=== PATIENT | female | born 1945 | race Caucasian/White ===

== ENCOUNTER 2017-08-02 14:28 | Emergency (ER) | payer MEDICARE, MEDICAID ==
[~2017-08-02] VITALS: Ht 5032.2 cm; Wt 54.0 kg
[2017-08-02] MEDS ORDERED: BENZ-16 PO (16:56)
[2017-08-02] MEDS ORDERED: AZIT500T2 PO (16:56)
[2017-08-02 17:02] VITALS: BP 146/68
== END 2017-08-02 17:03 | disposition home or self-care (01) ==
LOC: ER 14:29
DX: J06.9 Acute upper respiratory infection, unspecified (principal); M54.5 Low back pain; I10 Essential (primary) hypertension; G43.909 Migraine, unspecified, not intractable, without status migrainosus; Z88.6 Allergy status to analgesic agent; Z88.4 Allergy status to anesthetic agent; Z88.1 Allergy status to other antibiotic agents; Z88.2 Allergy status to sulfonamides; Z88.8 Allergy status to other drugs, medicaments and biological substances
CPT/HCPCS: 99283

== ENCOUNTER 2017-12-25 14:17 | Emergency (ER) | payer MEDICARE, MEDICAID ==
[~2017-12-25] VITALS: Ht 152.4 cm; Wt 55.0 kg
[2017-12-25] MEDS ORDERED: ketorolac tromethamine 15mg/ml inj. IM ONE (17:30)
[2017-12-25] MEDS ORDERED: HYDR-569 PO (18:47)
[2017-12-25 18:58] VITALS: BP 160/64
== END 2017-12-25 19:00 | disposition home or self-care (01) ==
LOC: ER 14:18
DX: M54.6 Pain in thoracic spine (principal); M54.2 Cervicalgia; G89.29 Other chronic pain; G43.909 Migraine, unspecified, not intractable, without status migrainosus; I10 Essential (primary) hypertension; Z98.890 Other specified postprocedural states; Z88.5 Allergy status to narcotic agent; Z88.8 Allergy status to other drugs, medicaments and biological substances; Z79.899 Other long term (current) drug therapy; V87.7XXA Person injured in collision between other specified motor vehicles (traffic), initial encounter; Y93.89 Activity, other specified; Y92.89 Other specified places as the place of occurrence of the external cause; Y99.8 Other external cause status
CPT/HCPCS: 72125; 72128; 96372; 99284; J1885

== ENCOUNTER 2019-01-29 20:44 | Inpatient (IN) | payer MEDICARE, MEDICAID ==
[~2019-01-29] VITALS: Ht 154.9 cm; Wt 52.0 kg
[~2019-01-29 20:44] MED LIST: HYDR-4383 PO
[2019-01-29 21:18] LABS: BASOPHILS # (AUTO) 0.1 X10'3 (0-0.2); BASOPHILS % (AUTO) 0.8 % (0-1); EOSINOPHILS # (AUTO) 0.2 X10'3 (0-0.9); EOSINOPHILS % (AUTO) 1.8 % (0-6); HEMATOCRIT 39.1 % (35.0-45.0); HEMOGLOBIN 13.7 g/dl (12.0-16.0); LYMPHOCYTES # (AUTO) 2.6 X10'3 (1.1-4.8); MEAN CORPUSCULAR HEMOGLOBIN 28.8 PG (27.0-31.0); MEAN CORPUSCULAR VOLUME 82.4 FL (78-98); MONOCYTES # (AUTO) 1.2 X10'3 (0-0.9); MONOCYTES % (AUTO) 12.3 % (2-12); NEUTROPHILS # (AUTO) 5.4 X10'3 (1.8-7.7); NEUTROPHILS % (AUTO) 57.1 % (42-75); PLATELET COUNT 204 X10'3 (140-440); RED BLOOD COUNT 4.75 X10'6 (4.20-5.60); RED CELL DISTRIBUTION WIDTH 14.7 % (11.5-14.5); WHITE BLOOD COUNT 9.4 X10'3 (4.5-11.0)
[2019-01-29 21:40] LABS: ALANINE AMINOTRANSFERASE 38 U/L (12-78); ALBUMIN 3.9 G/DL (3.4-5.0); ALKALINE PHOSPHATASE 69 IU/L (46-116); ANION GAP 11 (8-16); ASPARTATE AMINO TRANSFERASE 26 U/L (10-37); BILIRUBIN,TOTAL 0.6 MG/DL (0.1-1.0); BLOOD UREA NITROGEN 28 MG/DL (7-18); BUN/CREATININE RATIO 16.3 (6.6-38.0); CALCIUM 10.3 MG/DL (8.5-10.1); CHLORIDE 99 MMOL/L (99-107); CREATININE 1.72 MG/DL (0.40-0.90); GLUCOSE 106 MG/DL (70-104); MAGNESIUM 1.6 MG/DL (1.5-2.4); SODIUM 139 MMOL/L (135-145); TOTAL CARBON DIOXIDE 29.5 MMOL/L (24-32); TOTAL PROTEIN 7.8 G/DL (6.4-8.2); eGFR 29 ML/MIN
[2019-01-29 21:44] LABS: POTASSIUM 2.4 MMOL/L (3.5-5.1)
[2019-01-29] MEDS ORDERED: potassium 10mEq/100ml NS w/LIDOcaine (10mg/bag) IV SCH (21:45)
[2019-01-29] MEDS ORDERED: potassium Cl 20 mEq SR tablet PO ONE (21:45)
[2019-01-29] MEDS ORDERED: potassium Cl 10 mEq/100mL bag IV SCH (21:47)
--- NOTE | 2019-01-29 23:01 | NUR ---
Pt c/o IV potassium stinging. Rate decreased from 100ml to 50ml.
--- NOTE | 2019-01-29 23:10 | NUR ---
Ratge decrease of potassium IV did not stop stinging. Med stopped temporarily. New IV to be placed.
[2019-01-29] MEDS ORDERED: magnesium Cl slow-release 64mg tablet PO PRN (23:40)
[2019-01-29] MEDS ORDERED: magnesium 2GM in 50ml NS 50 ML IV PRN (23:40)
[2019-01-29] MEDS ORDERED: potassium Cl 20 mEq SR tablet PO PRN ×2 (23:40)
[2019-01-29] MEDS ORDERED: magnesium 4gm in 100ml NS 100 ML IV PRN (23:40)
--- NOTE | 2019-01-30 00:47 | NUR ---
New IV placed; initial IV potassium restarted at 50ml rate. EDMD Patee has been appraised with each attempt to provide comfort w/ med administration.
[2019-01-30] MEDS: potassium CL 10mEq/100ml bag 100 ML IV PRN ×7 (02:21→10:23)
[2019-01-30] MEDS ORDERED: normal saline 1000ml 1,000 ML IV SCH (02:37)
--- NOTE | 2019-01-30 02:57 | NUR ---
Problems reprioritized. Patient report given, questions answered & plan of care reviewed with DIETER RN. Patient arrived safety and is alert and oriented.
[2019-01-30 03:00] VITALS: BP 145/66
--- NOTE | 2019-01-30 03:08 | NUR ---
Called Dr Godoy for patient in room 345's ECG stripe reading and MD stated she already saw the strip in ER. Strip is in pt chart.
[2019-01-30] MEDS: HYDROcodone/acetaminophen 5mg/325mg tablet PO PRN (03:56)
[2019-01-30] MEDS ORDERED: CITA20TA28 PO (04:16)
[2019-01-30] MEDS ORDERED: POTA10TA19 PO (04:16)
[2019-01-30] MEDS ORDERED: ACET500C5 PO (04:16)
[2019-01-30] MEDS ORDERED: PANT20TA3 PO (04:16)
[2019-01-30] MEDS ORDERED: SIMV20TA5 PO (04:16)
[2019-01-30] MEDS ORDERED: GUAI-652 PO (04:16)
[2019-01-30] MEDS ORDERED: ACET-1015 PO (04:16)
[2019-01-30] MEDS ORDERED: ACYC-202 PO (04:16)
[2019-01-30] MEDS ORDERED: BENZ-49 PO (04:16)
[2019-01-30] MEDS ORDERED: SYN0.088T PO (04:16)
--- NOTE | 2019-01-30 04:17 | NUR ---
PT HOME MEDS TO PHARMACY; DOCUMENTATION TO [id number]
[2019-01-30 05:40] LABS: ALBUMIN 3.6 G/DL (3.4-5.0); ANION GAP 14 (8-16); BLOOD UREA NITROGEN 24 MG/DL (7-18); BUN/CREATININE RATIO 16.3 (6.6-38.0); CALCIUM 10.6 MG/DL (8.5-10.1); CHLORIDE 101 MMOL/L (99-107); CREATININE 1.47 MG/DL (0.40-0.90); GLUCOSE 92 MG/DL (70-104); MAGNESIUM 1.6 MG/DL (1.5-2.4); POTASSIUM 3.3 MMOL/L (3.5-5.1); SODIUM 140 MMOL/L (135-145); TOTAL CARBON DIOXIDE 25.1 MMOL/L (24-32); eGFR 35 ML/MIN
[2019-01-30 05:49] LABS: BASOPHILS # (AUTO) 0.1 X10'3 (0-0.2); BASOPHILS % (AUTO) 0.8 % (0-1); EOSINOPHILS # (AUTO) 0.1 X10'3 (0-0.9); EOSINOPHILS % (AUTO) 1.5 % (0-6); HEMATOCRIT 37.7 % (35.0-45.0); HEMOGLOBIN 13.2 g/dl (12.0-16.0); LYMPHOCYTES # (AUTO) 2.5 X10'3 (1.1-4.8); LYMPHOCYTES % (AUTO) 28.9 % (21-51); MEAN CORPUSCULAR HEMOGLOBIN 28.8 PG (27.0-31.0); MEAN CORPUSCULAR HGB CONC 34.9 g/dL (33.0-36.5); MEAN CORPUSCULAR VOLUME 82.7 FL (78-98); MEAN PLATELET VOLUME 8.5 FL (7.4-10.4); MONOCYTES # (AUTO) 1.1 X10'3 (0-0.9); MONOCYTES % (AUTO) 12.2 % (2-12); NEUTROPHILS % (AUTO) 56.6 % (42-75); PLATELET COUNT 193 X10'3 (140-440); RED BLOOD COUNT 4.56 X10'6 (4.20-5.60); RED CELL DISTRIBUTION WIDTH 14.7 % (11.5-14.5); WHITE BLOOD COUNT 8.8 X10'3 (4.5-11.0)
--- NOTE | 2019-01-30 06:30 | NUR ---
Problems reprioritized. Patient report given, questions answered & plan of care reviewed with Lauren RN.patient is resting.
[2019-01-30 07:00] VITALS: BP 122/47
[2019-01-30] MEDS: K and/or MAG REPLACEMENT MC SCH (07:11)
[2019-01-30] MEDS: docusate sod 100mg capsule PO SCH ×2 (07:19→20:28)
[2019-01-30] MEDS ORDERED: POTA8CAP20 PO (08:57)
[2019-01-30 09:06] LABS: PHOSPHORUS 2.6 MG/DL (2.3-4.5)
[2019-01-30] MEDS: pantoprazole 40mg Tablet.DR PO SCH (09:51)
[2019-01-30] MEDS: levoTHYROXINE 88mcg tablet PO SCH (09:51)
[2019-01-30] MEDS: potassium chloride 8mEq ER tablet PO SCH (09:51)
[2019-01-30] MEDS: citalopram 20mg tablet PO SCH ×2 (09:51→20:27)
[2019-01-30 11:00] VITALS: BP 120/47
--- NOTE | 2019-01-30 11:40 | NUR ---
Malnutrition consult: Patient's current wt is stable with documented weights from previous visits with only wt change of -2 kg in greater than one year using scaled weights. Pt currently on heart healthy diet with documented 100% PO intake meeting nutrient needs. No edema or decrease in muscle strength. Pt currently does not meet criteria for malnutrition. Will continue to follow. Addendum: 01/30/19 at [address] Amended: Links added.
[2019-01-30] MEDS: acetaminophen 325mg tablet PO PRN (13:42)
[2019-01-30 13:44] VITALS: BP_SYST 115; BP_SYST 133; BP_SYST 92; BP_DIAS 52; BP_DIAS 59; BP_DIAS 62
[2019-01-30] MEDS ORDERED: Potassium Cl inj 20 MEQ in normal saline 1000ml 990 ML IV SCH (15:20)
--- NOTE | 2019-01-30 18:34 | NUR ---
Problems reprioritized. Patient report given, questions answered & plan of care reviewed with PRUDENCE RN.
--- NOTE | 2019-01-30 18:36 | NUR ---
Patient in room [facility]. I have received report from Lauren DECKER and had the opportunity to ask questions and assume patient care.
[2019-01-30 19:00] VITALS: BP 102/49
[2019-01-30 20:00] VITALS: BP_SYST 103; BP_SYST 111; BP_SYST 113; BP_DIAS 39
[2019-01-30] MEDS: magnesium Cl slow-release 64mg tablet PO SCH (20:27)
[2019-01-30] MEDS: atorvastatin 20mg tablet PO SCH (20:28)
[2019-01-30] MEDS: famotidine 20mg tablet PO SCH (20:29)
[2019-01-30] MEDS: potassium Cl 20mEq in NS 1,000 ML IV SCH (21:15)
[2019-01-31] VITALS: BP 140/48
[2019-01-31] MEDS: HYDROcodone/acetaminophen 5mg/325mg tablet PO PRN ×3 (00:37→23:37)
[2019-01-31] MEDS: potassium Cl 20mEq in NS 1,000 ML IV SCH ×2 (04:05→17:44)
[2019-01-31 04:40] LABS: BASOPHILS # (AUTO) 0.1 X10'3 (0-0.2); EOSINOPHILS # (AUTO) 0.2 X10'3 (0-0.9); MONOCYTES # (AUTO) 0.8 X10'3 (0-0.9); MONOCYTES % (AUTO) 11.2 % (2-12); WHITE BLOOD COUNT 7.6 X10'3 (4.5-11.0)
[2019-01-31 04:44] LABS: EOSINOPHILS % (AUTO) 3.3 % (0-6); HEMATOCRIT 35.1 % (35.0-45.0); HEMOGLOBIN 12.2 g/dl (12.0-16.0); LYMPHOCYTES # (AUTO) 2.9 X10'3 (1.1-4.8); MEAN CORPUSCULAR HEMOGLOBIN 28.9 PG (27.0-31.0); MEAN CORPUSCULAR HGB CONC 34.9 g/dL (33.0-36.5); MEAN PLATELET VOLUME 8.2 FL (7.4-10.4); NEUTROPHILS # (AUTO) 3.5 X10'3 (1.8-7.7); NEUTROPHILS % (AUTO) 46.5 % (42-75); PLATELET COUNT 176 X10'3 (140-440); RED BLOOD COUNT 4.23 X10'6 (4.20-5.60)
[2019-01-31 04:48] LABS: ALBUMIN 3.2 G/DL (3.4-5.0); ANION GAP 8 (8-16); BLOOD UREA NITROGEN 25 MG/DL (7-18); BUN/CREATININE RATIO 18.1 (6.6-38.0); CALCIUM 9.8 MG/DL (8.5-10.1); CHLORIDE 108 MMOL/L (99-107); CREATININE 1.38 MG/DL (0.40-0.90); GLUCOSE 115 MG/DL (70-104); MAGNESIUM 1.5 MG/DL (1.5-2.4); POTASSIUM 3.4 MMOL/L (3.5-5.1); SODIUM 142 MMOL/L (135-145); TOTAL CARBON DIOXIDE 25.6 MMOL/L (24-32); eGFR 37 ML/MIN
--- NOTE | 2019-01-31 05:20 | NUR ---
Notified Dr Godoy for pt in room 345B chest tightness. Vital signs take BP at 133/68, Heart rate 56 and patient denied having pain.
--- NOTE | 2019-01-31 06:29 | NUR ---
Problems reprioritized. Patient report given, questions answered & plan of care reviewed with Tamara DECKER. Patient stated she is feeling much and no chest tightness.
[2019-01-31 07:00] VITALS: BP 126/43
[2019-01-31 08:00] VITALS: BP_SYST 125; BP_SYST 126; BP_SYST 131; BP_DIAS 37; BP_DIAS 43
[2019-01-31] MEDS: K and/or MAG REPLACEMENT MC SCH (08:00)
[2019-01-31] MEDS: citalopram 20mg tablet PO SCH ×2 (09:40→20:34)
[2019-01-31] MEDS: docusate sod 100mg capsule PO SCH ×2 (09:40→20:00)
[2019-01-31] MEDS: magnesium Cl slow-release 64mg tablet PO SCH (09:40)
[2019-01-31] MEDS: pantoprazole 40mg Tablet.DR PO SCH (09:40)
[2019-01-31] MEDS: levoTHYROXINE 88mcg tablet PO SCH (09:40)
[2019-01-31] MEDS: potassium chloride 8mEq ER tablet PO SCH (09:40)
[2019-01-31] MEDS ORDERED: potassium Cl 20 mEq SR tablet PO STA (10:26)
[2019-01-31 11:00] VITALS: BP 129/40
[2019-01-31 11:25] LABS: PHOSPHORUS 2.8 MG/DL (2.3-4.5)
[2019-01-31] MEDS: magnesium oxide 400mg tablet PO SCH ×2 (12:01→20:34)
[2019-01-31 18:30] VITALS: BP 106/46
--- NOTE | 2019-01-31 18:30 | NUR ---
Patient in room [facility]. I have received report from CHIQUITA and had the opportunity to ask questions and assume patient care.
[2019-01-31] MEDS: atorvastatin 20mg tablet PO SCH (20:34)
[2019-01-31] MEDS: famotidine 20mg tablet PO SCH (20:34)
[2019-01-31 23:30] VITALS: BP 141/54
[2019-02-01] MEDS: potassium Cl 20mEq in NS 1,000 ML IV SCH ×3 (04:49→23:38)
[2019-02-01 05:04] LABS: BASOPHILS # (AUTO) 0.1 X10'3 (0-0.2); BASOPHILS % (AUTO) 0.9 % (0-1); EOSINOPHILS # (AUTO) 0.2 X10'3 (0-0.9); EOSINOPHILS % (AUTO) 3.5 % (0-6); HEMATOCRIT 32.8 % (35.0-45.0); HEMOGLOBIN 11.3 g/dl (12.0-16.0); LYMPHOCYTES # (AUTO) 2.6 X10'3 (1.1-4.8); LYMPHOCYTES % (AUTO) 39.1 % (21-51); MEAN CORPUSCULAR HEMOGLOBIN 28.9 PG (27.0-31.0); MEAN CORPUSCULAR HGB CONC 34.5 g/dL (33.0-36.5); MEAN PLATELET VOLUME 8.3 FL (7.4-10.4); MONOCYTES # (AUTO) 0.7 X10'3 (0-0.9); MONOCYTES % (AUTO) 10.1 % (2-12); NEUTROPHILS # (AUTO) 3.1 X10'3 (1.8-7.7); NEUTROPHILS % (AUTO) 46.4 % (42-75); PLATELET COUNT 165 X10'3 (140-440); RED BLOOD COUNT 3.91 X10'6 (4.20-5.60); WHITE BLOOD COUNT 6.6 X10'3 (4.5-11.0)
[2019-02-01 05:13] LABS: ALBUMIN 2.9 G/DL (3.4-5.0); ANION GAP 10 (8-16); BLOOD UREA NITROGEN 21 MG/DL (7-18); BUN/CREATININE RATIO 17.9 (6.6-38.0); CALCIUM 9.7 MG/DL (8.5-10.1); CHLORIDE 109 MMOL/L (99-107); CREATININE 1.17 MG/DL (0.40-0.90); GLUCOSE 115 MG/DL (70-104); MAGNESIUM 1.3 MG/DL (1.5-2.4); POTASSIUM 3.9 MMOL/L (3.5-5.1); SODIUM 143 MMOL/L (135-145); TOTAL CARBON DIOXIDE 24.3 MMOL/L (24-32); eGFR 45 ML/MIN
--- NOTE | 2019-02-01 06:26 | NUR ---
Problems reprioritized. Patient report given, questions answered & plan of care reviewed with CHIQUITA.
[2019-02-01 07:00] VITALS: BP 122/52
[2019-02-01] MEDS: K and/or MAG REPLACEMENT MC SCH (07:59)
[2019-02-01] MEDS: docusate sod 100mg capsule PO SCH ×2 (08:00→20:40)
[2019-02-01] MEDS: levoTHYROXINE 88mcg tablet PO SCH (08:00)
[2019-02-01] MEDS: pantoprazole 40mg Tablet.DR PO SCH (08:00)
[2019-02-01] MEDS: citalopram 20mg tablet PO SCH ×2 (08:00→20:40)
[2019-02-01] MEDS: magnesium oxide 400mg tablet PO SCH ×2 (08:00→20:40)
[2019-02-01] MEDS ORDERED: magnesium 2GM in 50ml NS 50 ML IV ONE (09:35)
[2019-02-01 11:00] VITALS: BP 141/66
[2019-02-01] MEDS: loratadine 10mg tablet PO SCH (17:38)
[2019-02-01 19:00] VITALS: BP 130/47
[2019-02-01] MEDS: atorvastatin 20mg tablet PO SCH (20:40)
[2019-02-01] MEDS: fluticasone nasal spray 16GM bottle NS SCH (20:40)
[2019-02-01] MEDS: famotidine 20mg tablet PO SCH (20:40)
[2019-02-01] MEDS: acetaminophen 325mg tablet PO PRN (23:48)
[2019-02-02] VITALS: BP 153/54
[2019-02-02 04:48] LABS: BASOPHILS # (AUTO) 0.1 X10'3 (0-0.2); BASOPHILS % (AUTO) 0.9 % (0-1); EOSINOPHILS # (AUTO) 0.3 X10'3 (0-0.9); EOSINOPHILS % (AUTO) 3.5 % (0-6); HEMATOCRIT 33.3 % (35.0-45.0); HEMOGLOBIN 11.4 g/dl (12.0-16.0); LYMPHOCYTES # (AUTO) 2.7 X10'3 (1.1-4.8); LYMPHOCYTES % (AUTO) 34.8 % (21-51); MEAN CORPUSCULAR HEMOGLOBIN 28.9 PG (27.0-31.0); MEAN CORPUSCULAR HGB CONC 34.3 g/dL (33.0-36.5); MEAN CORPUSCULAR VOLUME 84.2 FL (78-98); MEAN PLATELET VOLUME 8.4 FL (7.4-10.4); MONOCYTES # (AUTO) 0.7 X10'3 (0-0.9); MONOCYTES % (AUTO) 9.3 % (2-12); NEUTROPHILS % (AUTO) 51.5 % (42-75); PLATELET COUNT 172 X10'3 (140-440); RED BLOOD COUNT 3.95 X10'6 (4.20-5.60); RED CELL DISTRIBUTION WIDTH 15.3 % (11.5-14.5); WHITE BLOOD COUNT 7.7 X10'3 (4.5-11.0)
[2019-02-02 04:53] LABS: ALBUMIN 2.9 G/DL (3.4-5.0); ANION GAP 7 (8-16); BLOOD UREA NITROGEN 19 MG/DL (7-18); BUN/CREATININE RATIO 16.2 (6.6-38.0); CALCIUM 9.4 MG/DL (8.5-10.1); CHLORIDE 110 MMOL/L (99-107); CREATININE 1.17 MG/DL (0.40-0.90); GLUCOSE 104 MG/DL (70-104); MAGNESIUM 1.5 MG/DL (1.5-2.4); POTASSIUM 4.3 MMOL/L (3.5-5.1); SODIUM 141 MMOL/L (135-145); TOTAL CARBON DIOXIDE 23.8 MMOL/L (24-32); eGFR 45 ML/MIN
--- NOTE | 2019-02-02 06:47 | NUR ---
Problems reprioritized. Patient report given, questions answered & plan of care reviewed with THOMAS. Addendum: 02/02/19 at 0647 by Chava Cheng RN Amended: Links added.
[2019-02-02] MEDS: K and/or MAG REPLACEMENT MC SCH (07:39)
[2019-02-02 08:00] VITALS: BP 92/71
[2019-02-02] MEDS: citalopram 20mg tablet PO SCH ×2 (08:12→20:00)
[2019-02-02] MEDS: pantoprazole 40mg Tablet.DR PO SCH (08:12)
[2019-02-02] MEDS: loratadine 10mg tablet PO SCH (08:12)
[2019-02-02] MEDS: levoTHYROXINE 88mcg tablet PO SCH (08:12)
[2019-02-02] MEDS: guaiFENesin/DM 10ml UD oral syrup PO SCH (08:13)
[2019-02-02] MEDS: fluticasone nasal spray 16GM bottle NS SCH (08:13)
[2019-02-02] MEDS: docusate sod 100mg capsule PO SCH ×2 (08:13→20:00)
[2019-02-02] MEDS: magnesium oxide 400mg tablet PO SCH ×2 (08:13→20:00)
[2019-02-02] MEDS: potassium Cl 20mEq in NS 1,000 ML IV SCH ×2 (09:15→17:13)
[2019-02-02 12:00] VITALS: BP 152/59
[2019-02-02] MEDS: ondansetron/PF 4mg/2ml inj IV PRN (17:11)
--- NOTE | 2019-02-02 18:26 | NUR ---
Problems reprioritized. Patient report given, questions answered & plan of care reviewed with JERONIMO Tomas.
[2019-02-02 19:00] VITALS: BP 151/58
[2019-02-02] MEDS: atorvastatin 20mg tablet PO SCH (22:00)
[2019-02-02] MEDS: famotidine 20mg tablet PO SCH (22:00)
[2019-02-03] VITALS (12 sets, daily range): BP systolic 119–146; BP diastolic 37–57
[2019-02-03] MEDS: acetaminophen 325mg tablet PO PRN (00:49)
[2019-02-03 04:53] LABS: BASOPHILS # (AUTO) 0.1 X10'3 (0-0.2); BASOPHILS % (AUTO) 0.7 % (0-1); EOSINOPHILS # (AUTO) 0.2 X10'3 (0-0.9); EOSINOPHILS % (AUTO) 3.4 % (0-6); HEMATOCRIT 33.1 % (35.0-45.0); HEMOGLOBIN 11.2 g/dl (12.0-16.0); LYMPHOCYTES # (AUTO) 2.4 X10'3 (1.1-4.8); LYMPHOCYTES % (AUTO) 33.1 % (21-51); MEAN CORPUSCULAR HEMOGLOBIN 28.8 PG (27.0-31.0); MEAN CORPUSCULAR HGB CONC 33.8 g/dL (33.0-36.5); MEAN CORPUSCULAR VOLUME 85.1 FL (78-98); MEAN PLATELET VOLUME 8.3 FL (7.4-10.4); MONOCYTES # (AUTO) 0.7 X10'3 (0-0.9); MONOCYTES % (AUTO) 9.2 % (2-12); NEUTROPHILS # (AUTO) 3.9 X10'3 (1.8-7.7); NEUTROPHILS % (AUTO) 53.6 % (42-75); PLATELET COUNT 174 X10'3 (140-440); RED BLOOD COUNT 3.89 X10'6 (4.20-5.60); RED CELL DISTRIBUTION WIDTH 15.3 % (11.5-14.5); WHITE BLOOD COUNT 7.3 X10'3 (4.5-11.0)
[2019-02-03 05:10] LABS: ANION GAP 9 (8-16); BLOOD UREA NITROGEN 21 MG/DL (7-18); BUN/CREATININE RATIO 18.4 (6.6-38.0); CALCIUM 9.6 MG/DL (8.5-10.1); CHLORIDE 109 MMOL/L (99-107); CREATININE 1.14 MG/DL (0.40-0.90); GLUCOSE 99 MG/DL (70-104); MAGNESIUM 1.3 MG/DL (1.5-2.4); POTASSIUM 4.3 MMOL/L (3.5-5.1); SODIUM 143 MMOL/L (135-145); TOTAL CARBON DIOXIDE 25.2 MMOL/L (24-32); eGFR 46 ML/MIN
--- NOTE | 2019-02-03 06:42 | NUR ---
Patient in room [facility]. I have received report from Thom DECKER and had the opportunity to ask questions and assume patient care.
[2019-02-03] MEDS: potassium Cl 20mEq in NS 1,000 ML IV SCH (06:43)
--- NOTE | 2019-02-03 06:43 | NUR ---
Problems reprioritized. Patient report given, questions answered & plan of care reviewed with MIGUEL A. Addendum: 02/03/19 at 0643 by Chava Cheng RN Amended: Links added.
[2019-02-03] MEDS ORDERED: chlorhexidine gluc 0.4% **topical ** 120ml btl. TP ONE (07:20)
[2019-02-03] MEDS: K and/or MAG REPLACEMENT MC SCH (08:00)
[2019-02-03] MEDS: docusate sod 100mg capsule PO SCH ×2 (08:05→20:00)
[2019-02-03] MEDS: guaiFENesin/DM 10ml UD oral syrup PO SCH (08:05)
[2019-02-03] MEDS: magnesium oxide 400mg tablet PO SCH ×2 (08:06→20:18)
[2019-02-03] MEDS: pantoprazole 40mg Tablet.DR PO SCH (08:06)
[2019-02-03] MEDS: citalopram 20mg tablet PO SCH ×2 (08:06→20:17)
[2019-02-03] MEDS: levoTHYROXINE 88mcg tablet PO SCH (08:06)
[2019-02-03] MEDS: loratadine 10mg tablet PO SCH (08:06)
[2019-02-03] MEDS ORDERED: magnesium 2GM in 50ml NS 50 ML IV ONE (08:15)
[2019-02-03] MEDS ORDERED: ceFAZolin 1GM/D5W- ADD-VANTAGE 50 ML IV ONE ×2 (08:15)
[2019-02-03] MEDS: fluticasone nasal spray 16GM bottle NS SCH (08:19)
[2019-02-03 09:49] LABS: PARTIAL THROMBOPLASTIN TIME 26 SECONDS (22-32)
[2019-02-03] MEDS: HYDROcodone/acetaminophen 5mg/325mg tablet PO PRN ×2 (11:38→20:16)
--- NOTE | 2019-02-03 14:02 | NUR ---
Initial: Pt admit with c/o dizziness and with hypokalemia. Pt was to be discharged however noted to have intermittent second-degree heart block, cardiology consulted per MD notes. Pt currently NPO however previously on heart healthy diet with documented 100% PO intake meeting nutrient needs. LBM 01/31, pt with routine Colace. No nutrition diagnosis at this time. Will continue to follow. Recommendations: 1) Resume heart healthy diet as medically indicated 2) Routine bowel care; monitor need for additional 3) Wt per rx Addendum: 02/03/19 at [address] Amended: Links added.
[2019-02-03 14:22] LABS: CLARITY,URINE CLEAR (Clear); COLOR,URINE YELLOW (Yellow); GLUCOSE, URINE NEGATIVE (Neg); KETONES,URINE NEGATIVE (Neg); LEUKOCYTE ESTERASE ,URINE NEGATIVE (Neg); NITRITES, URINE NEGATIVE (Neg); OCCULT BLOOD,URINE MODERATE (Neg); PROTEIN,URINE NEGATIVE (Neg); UROBILINOGEN,URINE 0.2 E.U/dL (0.2-1.0)
[2019-02-03 14:26] LABS: PHOS, URINE RANDOM 16.1 MG/DL; TOTAL PROTEIN,URINE RANDOM 14.6 MG/DL
[2019-02-03 14:28] LABS: UA COLLECTION TYPE CLN CATCH MIDSTREAM
[2019-02-03 14:38] LABS: HYALINE CASTS 0-3 /LPF (NEGATIVE); MUCUS STRANDS FEW /LPF (Neg); SQUAMOUS EPITHELIAL CELL,UR MANY /LPF (FEW)
[2019-02-03 14:39] LABS: BACTERIA,URINE FEW /HPF (Neg); WBC,URINE 0-4 /HPF (0-4)
[2019-02-03] MEDS ORDERED: cefazolin/dext.iso 2gm/100ml 100 ML IV ONE (16:00)
[2019-02-03] MEDS ORDERED: fentaNYL/PF 50MCG/1 ML 2ML syringe ONE (16:33)
[2019-02-03] MEDS ORDERED: ceFAZolin 1000mg inj ONE (16:33)
[2019-02-03] MEDS ORDERED: midazolam 2 mg/2 ml injection ONE (16:33)
--- NOTE | 2019-02-03 17:02 | NUR ---
Patient just went to [employer] for permanent pacemaker insertion. Addendum: 02/03/19 at 1717 by Jahaira Salas RN Preop antibiotic Ancef IV given to the [employer] nurse during hands off report
[2019-02-03] MEDS ORDERED: normal saline 1000ml 1,000 ML IV SCH (19:00)
--- NOTE | 2019-02-03 19:30 | NUR ---
pt returned from pacemaker placement; pt reminded not to move her left arm (sling on); CSM adequate to arm Addendum: 02/04/19 at 0108 by Louisa Frances RN Amended: Links added.
[2019-02-03] MEDS: famotidine 20mg tablet PO SCH (20:18)
[2019-02-03] MEDS: atorvastatin 20mg tablet PO SCH (20:18)
[2019-02-03] MEDS ORDERED: HYDROcodone/acetaminophen 5mg/325mg tablet PO PRN (23:50)
[2019-02-04] MEDS: HYDROcodone/acetaminophen 10/325mg tab PO PRN ×5 (00:02→20:11)
[2019-02-04] MEDS: ceFAZolin 1GM/D5W- ADD-VANTAGE 50 ML IV SCH ×3 (00:08→16:39)
[2019-02-04] MEDS: sodium chloride 0.45% 1,000 ML IV SCH ×4 (00:16→22:45)
[2019-02-04 04:00] VITALS: BP 118/52
[2019-02-04 07:00] VITALS: BP 154/50
--- NOTE | 2019-02-04 07:00 | NUR ---
Patient in room [facility]. I have received report from Pat RN and had the opportunity to ask questions and assume patient care.
[2019-02-04] MEDS: K and/or MAG REPLACEMENT MC SCH (08:00)
[2019-02-04] MEDS: pantoprazole 40mg Tablet.DR PO SCH (08:12)
[2019-02-04] MEDS: loratadine 10mg tablet PO SCH (08:12)
[2019-02-04] MEDS: docusate sod 100mg capsule PO SCH ×2 (08:12→20:11)
[2019-02-04] MEDS: levoTHYROXINE 88mcg tablet PO SCH (08:12)
[2019-02-04] MEDS: citalopram 20mg tablet PO SCH ×2 (08:12→20:12)
[2019-02-04] MEDS: magnesium oxide 400mg tablet PO SCH ×2 (08:12→20:12)
[2019-02-04] MEDS: guaiFENesin/DM 10ml UD oral syrup PO SCH (08:13)
[2019-02-04] MEDS: fluticasone nasal spray 16GM bottle NS SCH (08:19)
[2019-02-04 10:06] LABS: HEMATOCRIT 32.6 % (35.0-45.0); MEAN CORPUSCULAR HEMOGLOBIN 28.6 PG (27.0-31.0); MEAN CORPUSCULAR HGB CONC 33.8 g/dL (33.0-36.5); MEAN CORPUSCULAR VOLUME 84.6 FL (78-98); MEAN PLATELET VOLUME 7.5 FL (7.4-10.4); PLATELET COUNT 173 X10'3 (140-440); RED BLOOD COUNT 3.86 X10'6 (4.20-5.60); RED CELL DISTRIBUTION WIDTH 14.9 % (11.5-14.5); WHITE BLOOD COUNT 7.7 X10'3 (4.5-11.0)
[2019-02-04 10:23] LABS: ALANINE AMINOTRANSFERASE 28 U/L (12-78); ALBUMIN/GLOBULIN RATIO 0.9 (1.1-1.5); ALKALINE PHOSPHATASE 53 IU/L (46-116); ANION GAP 10 (8-16); ASPARTATE AMINO TRANSFERASE 23 U/L (10-37); BILIRUBIN,TOTAL 0.4 MG/DL (0.1-1.0); BLOOD UREA NITROGEN 18 MG/DL (7-18); BUN/CREATININE RATIO 15.3 (6.6-38.0); CALCIUM 9.1 MG/DL (8.5-10.1); CHLORIDE 106 MMOL/L (99-107); CREATININE 1.18 MG/DL (0.40-0.90); GLUCOSE 126 MG/DL (70-104); MAGNESIUM 1.6 MG/DL (1.5-2.4); PHOSPHORUS 2.8 MG/DL (2.3-4.5); SODIUM 140 MMOL/L (135-145); TOTAL CARBON DIOXIDE 24.1 MMOL/L (24-32); TOTAL PROTEIN 6.3 G/DL (6.4-8.2); eGFR 45 ML/MIN
[2019-02-04 11:00] VITALS: BP 110/50
[2019-02-04] MEDS: ondansetron/PF 4mg/2ml inj IV PRN (18:18)
--- NOTE | 2019-02-04 18:52 | NUR ---
Problems reprioritized. Patient report given, questions answered & plan of care reviewed with Khadijah DECKER.
--- NOTE | 2019-02-04 18:53 | NUR ---
Patient in room [facility]. I have received report from MIGUEL A DECKER and had the opportunity to ask questions and assume patient care.
[2019-02-04 20:00] VITALS: BP 123/57
[2019-02-04] MEDS: lactobacillus rhamnosus 10,000 MMU CELLS/CAPSULE PO SCH (20:11)
[2019-02-04] MEDS: cephalexin 500mg capsule PO SCH (20:12)
[2019-02-04] MEDS: atorvastatin 20mg tablet PO SCH (20:12)
[2019-02-04] MEDS: famotidine 20mg tablet PO SCH (20:12)
[2019-02-05] VITALS: BP 111/48
[2019-02-05] MEDS: HYDROcodone/acetaminophen 10/325mg tab PO PRN ×3 (03:21→15:40)
[2019-02-05] MEDS: sodium chloride 0.45% 1,000 ML IV SCH (03:27)
[2019-02-05 05:23] LABS: HEMATOCRIT 33.2 % (35.0-45.0); HEMOGLOBIN 11.2 g/dl (12.0-16.0); MEAN CORPUSCULAR HEMOGLOBIN 28.8 PG (27.0-31.0); MEAN CORPUSCULAR HGB CONC 33.8 g/dL (33.0-36.5); MEAN CORPUSCULAR VOLUME 85.1 FL (78-98); MEAN PLATELET VOLUME 8.4 FL (7.4-10.4); PLATELET COUNT 178 X10'3 (140-440); RED BLOOD COUNT 3.91 X10'6 (4.20-5.60); WHITE BLOOD COUNT 8.2 X10'3 (4.5-11.0)
[2019-02-05 05:33] LABS: ALANINE AMINOTRANSFERASE 21 U/L (12-78); ALBUMIN 3.1 G/DL (3.4-5.0); ALBUMIN/GLOBULIN RATIO 0.9 (1.1-1.5); ALKALINE PHOSPHATASE 57 IU/L (46-116); ANION GAP 5 (8-16); ASPARTATE AMINO TRANSFERASE 26 U/L (10-37); BILIRUBIN,TOTAL 0.4 MG/DL (0.1-1.0); BLOOD UREA NITROGEN 17 MG/DL (7-18); BUN/CREATININE RATIO 14.5 (6.6-38.0); CALCIUM 9.8 MG/DL (8.5-10.1); CHLORIDE 108 MMOL/L (99-107); CREATININE 1.17 MG/DL (0.40-0.90); GLUCOSE 97 MG/DL (70-104); MAGNESIUM 1.8 MG/DL (1.5-2.4); PHOSPHORUS 3.2 MG/DL (2.3-4.5); POTASSIUM 4.2 MMOL/L (3.5-5.1); SODIUM 142 MMOL/L (135-145); TOTAL CARBON DIOXIDE 29.2 MMOL/L (24-32); TOTAL PROTEIN 6.5 G/DL (6.4-8.2); eGFR 45 ML/MIN
--- NOTE | 2019-02-05 06:14 | NUR ---
Problems reprioritized. Patient report given, questions answered & plan of care reviewed with ROSETTA DECKER.
--- NOTE | 2019-02-05 06:15 | NUR ---
Patient in room [facility]. I have received report from JERONIMO Lucio and had the opportunity to ask questions and assume patient care.
[2019-02-05 07:23] VITALS: BP 99/50
[2019-02-05] MEDS: fluticasone nasal spray 16GM bottle NS SCH (07:40)
[2019-02-05] MEDS: citalopram 20mg tablet PO SCH (07:41)
[2019-02-05] MEDS: lactobacillus rhamnosus 10,000 MMU CELLS/CAPSULE PO SCH (07:41)
[2019-02-05] MEDS: cephalexin 500mg capsule PO SCH (07:41)
[2019-02-05] MEDS: loratadine 10mg tablet PO SCH (07:41)
[2019-02-05] MEDS: docusate sod 100mg capsule PO SCH (07:41)
[2019-02-05] MEDS: pantoprazole 40mg Tablet.DR PO SCH (07:42)
[2019-02-05] MEDS: levoTHYROXINE 88mcg tablet PO SCH (07:42)
[2019-02-05] MEDS: magnesium oxide 400mg tablet PO SCH (07:42)
[2019-02-05] MEDS: guaiFENesin/DM 10ml UD oral syrup PO SCH (07:42)
[2019-02-05 11:17] LABS: A/G RATIO 1.1 (0.7-1.7); ALBUMIN 3.5 g/dL (2.9-4.4); BETA GLOBULIN 1.1 g/dL (0.7-1.3); GAMMA GLOBULIN 0.9 g/dL (0.4-1.8); GLOBULIN, TOTAL 3.2 g/dL (2.2-3.9); M-SPIKE Not Observed g/dL (Not Observed); PROTEIN, TOTAL, SERUM 6.7 g/dL (6.0-8.5)
[2019-02-05 11:39] VITALS: BP 132/62
[2019-02-05] MEDS ORDERED: CEPH500C5 PO (13:10)
--- NOTE | 2019-02-05 15:00 | NUR ---
Earlier this am there were two calls from Tele saying that her O2 had dropped into the mid 80's. Every time I checked the patient she was not short of breath. I also checked her with our machine and she was usually 90-92. She would occasionally drop to 88 and then right back up again. Patient ambulated on RA and never dropped below 90. The patient doesn't quality for home O2. Spoke to Dr. Mari and he suggested to give her an IS to use here and at home. Dr. Mari was also concerned if she would benefit from HH. I spoke to the patient and she has an [employer] worker that comes in 5 days a week; so she has someone looking after her and her son. Her son lives with her also but he has CP and isn't able to help her very much. Addendum: 02/05/19 at 1644 by Melissa Jacobs RN MD aware that the patient has an [employer] worker and doesn't need HH.
--- NOTE | 2019-02-05 16:10 | NUR ---
Patient discharged. PIV removed: cath tip intact. Education given and patient verbalized understanding. Patient was given pacemaker pamphlet from chart; as well as, the card she is supposed to put in her wallet. Patient was wheeled down by staff.
[2019-02-09 13:18] LABS: RENIN, PLASMA 0.382 ng/mL/hr (0.167-5.380)
[2019-02-10 05:17] LABS: ALDOSTERONE <1.0 ng/dL (0.0-30.0)
== END 2019-02-05 16:15 | disposition home or self-care (01) | DRG 242 ==
LOC: ER 20:44 → SUR 3N 01-30 01:34 → CMPBEDREQ 02-01 20:25
PROVIDERS: ADMIT Internal Medicine; ATTEND Family Medicine
PROC: 0JH606Z Insertion of Pacemaker, Dual Chamber into Chest Subcutaneous Tissue and Fascia, Open Approach (ICD-10-PCS; principal; 2019-02-03)
PROC: 02HK3JZ Insertion of Pacemaker Lead into Right Ventricle, Percutaneous Approach (ICD-10-PCS; 2019-02-03)
PROC: 02H63JZ Insertion of Pacemaker Lead into Right Atrium, Percutaneous Approach (ICD-10-PCS; 2019-02-03)
DX: I49.5 Sick sinus syndrome (principal); N17.0 Acute kidney failure with tubular necrosis; E87.6 Hypokalemia; E86.9 Volume depletion, unspecified; I44.1 Atrioventricular block, second degree; E03.9 Hypothyroidism, unspecified; G90.8 Other disorders of autonomic nervous system; I12.9 Hypertensive chronic kidney disease with stage 1 through stage 4 chronic kidney disease, or unspecified chronic kidney disease; N18.9 Chronic kidney disease, unspecified; E78.5 Hyperlipidemia, unspecified; I95.1 Orthostatic hypotension; E83.52 Hypercalcemia; E83.42 Hypomagnesemia; E86.0 Dehydration; I34.0 Nonrheumatic mitral (valve) insufficiency; E83.39 Other disorders of phosphorus metabolism; G43.909 Migraine, unspecified, not intractable, without status migrainosus; G89.29 Other chronic pain; M54.9 Dorsalgia, unspecified; Z90.710 Acquired absence of both cervix and uterus; Z88.5 Allergy status to narcotic agent; Z88.2 Allergy status to sulfonamides; Z88.8 Allergy status to other drugs, medicaments and biological substances; Z79.899 Other long term (current) drug therapy; Z98.51 Tubal ligation status; Z90.49 Acquired absence of other specified parts of digestive tract
CPT/HCPCS: 33208; 36415; 70450; 71045; 80048; 80053; 81001; 82088; 82570; 83735; 83880; 84100; 84105; 84132; 84133; 84155; 84156; 84165; 84244; 84443; 84484; 85025; 85027; 85610; 85730; 87081; 93005; 93306; 96365; 97116; 97162; 99152; 99153; 99285; A4565; A4620; C1785; C1898; G0378; J0690; J2250; J2405; J3010; J3475; J3480; J7030

== ENCOUNTER 2019-06-26 09:57 | Emergency (ER) | payer MEDICARE, MEDICAID ==
[~2019-06-26] VITALS: Ht 154.9 cm; Wt 52.7 kg
[~2019-06-26 09:57] MED LIST changes: +ACET-1015 PO; +ACET500C5 PO; +ACYC-202 PO; +BENZ-49 PO; +CEPH500C5 PO; +CITA20TA28 PO; +GUAI-652 PO; -HYDR-4383 PO; +PANT20TA3 PO; +POTA8CAP20 PO; +SIMV-42 PO; +SYN0.088T PO
[2019-06-26 10:55] LABS: EOSINOPHILS % (AUTO) 0.8 % (0-6); HEMATOCRIT 39.6 % (35.0-45.0); HEMOGLOBIN 13.5 g/dl (12.0-16.0); LYMPHOCYTES # (AUTO) 1.4 X10'3 (1.1-4.8); LYMPHOCYTES % (AUTO) 30.4 % (21-51); MEAN CORPUSCULAR HEMOGLOBIN 27.3 PG (27.0-31.0); MEAN CORPUSCULAR HGB CONC 34.1 g/dL (33.0-36.5); MEAN PLATELET VOLUME 8.4 FL (7.4-10.4); MONOCYTES # (AUTO) 0.5 X10'3 (0-0.9); MONOCYTES % (AUTO) 11.7 % (2-12); NEUTROPHILS # (AUTO) 2.5 X10'3 (1.8-7.7); NEUTROPHILS % (AUTO) 56.1 % (42-75); PLATELET COUNT 128 X10'3 (140-440); RED BLOOD COUNT 4.95 X10'6 (4.20-5.60); RED CELL DISTRIBUTION WIDTH 15.3 % (11.5-14.5); WHITE BLOOD COUNT 4.5 X10'3 (4.5-11.0)
[2019-06-26 11:08] LABS: ALANINE AMINOTRANSFERASE 43 U/L (12-78); ALBUMIN 4.3 G/DL (3.4-5.0); ALBUMIN/GLOBULIN RATIO 1.1 (1.1-1.5); ALKALINE PHOSPHATASE 76 IU/L (46-116); ANION GAP 9 (8-16); ASPARTATE AMINO TRANSFERASE 31 U/L (10-37); BILIRUBIN,TOTAL 0.6 MG/DL (0.1-1.0); BLOOD UREA NITROGEN 16 MG/DL (7-18); BUN/CREATININE RATIO 11.9 (6.6-38.0); CALCIUM 9.4 MG/DL (8.5-10.1); CHLORIDE 105 MMOL/L (99-107); CREATININE 1.34 MG/DL (0.40-0.90); GLUCOSE 114 MG/DL (70-104); POTASSIUM 3.1 MMOL/L (3.5-5.1); SODIUM 142 MMOL/L (135-145); TOTAL CARBON DIOXIDE 27.8 MMOL/L (24-32); TOTAL PROTEIN 8.1 G/DL (6.4-8.2); eGFR 39 ML/MIN
[2019-06-26 12:29] VITALS: BP 154/70
[2019-06-26] MEDS ORDERED: ipratropium/albuterol 3ml nebule NEB ONE (13:20)
--- NOTE | 2019-06-26 13:36 | NUR ---
RT in room for tx as ordered.
[2019-06-26] MEDS ORDERED: BENZ-16 PO (14:01)
== END 2019-06-26 14:21 | disposition home or self-care (01) ==
LOC: ER 09:59
DX: J06.9 Acute upper respiratory infection, unspecified (principal); G43.909 Migraine, unspecified, not intractable, without status migrainosus; I10 Essential (primary) hypertension; G89.29 Other chronic pain; Z98.890 Other specified postprocedural states; Z88.5 Allergy status to narcotic agent; Z88.1 Allergy status to other antibiotic agents; Z88.6 Allergy status to analgesic agent; Z79.899 Other long term (current) drug therapy
CPT/HCPCS: 36415; 71046; 80053; 83605; 84484; 85025; 87040; 93005; 94640; 94760; 99284

== ENCOUNTER 2019-07-04 08:03 | Emergency (ER) | payer MEDICARE, MEDICAID ==
[~2019-07-04] VITALS: Ht 154.9 cm; Wt 52.7 kg
[~2019-07-04 08:03] MED LIST changes: +BENZ-16 PO
--- NOTE | 2019-07-04 09:02 | NUR ---
in with pt
[2019-07-04] MEDS ORDERED: ondansetron/PF 4mg/2ml inj IV ONE (09:10)
[2019-07-04] MEDS ORDERED: ketorolac trometh. 30mg/ml inj. IV ONE (09:10)
[2019-07-04] MEDS ORDERED: fentaNYL/PF 50MCG/1 ML 2ML syringe IV ONE (09:10)
[2019-07-04] MEDS ORDERED: normal saline 1000ML IV soln IVB ONE (09:10)
[2019-07-04 10:27] LABS: BASOPHILS % (AUTO) 0.4 % (0-1); EOSINOPHILS # (AUTO) 0.1 X10'3 (0-0.9); EOSINOPHILS % (AUTO) 0.8 % (0-6); HEMOGLOBIN 12.8 g/dl (12.0-16.0); LYMPHOCYTES # (AUTO) 2.3 X10'3 (1.1-4.8); LYMPHOCYTES % (AUTO) 20.4 % (21-51); MEAN CORPUSCULAR HGB CONC 34.5 g/dL (33.0-36.5); MEAN CORPUSCULAR VOLUME 78.1 FL (78-98); MEAN PLATELET VOLUME 8.1 FL (7.4-10.4); NEUTROPHILS # (AUTO) 7.7 X10'3 (1.8-7.7); NEUTROPHILS % (AUTO) 69.4 % (42-75); PLATELET COUNT 199 X10'3 (140-440); RED BLOOD COUNT 4.74 X10'6 (4.20-5.60); RED CELL DISTRIBUTION WIDTH 15.3 % (11.5-14.5); WHITE BLOOD COUNT 11.1 X10'3 (4.5-11.0)
[2019-07-04 10:40] LABS: ALANINE AMINOTRANSFERASE 22 U/L (12-78); ALBUMIN 3.8 G/DL (3.4-5.0); ALBUMIN/GLOBULIN RATIO 0.9 (1.1-1.5); ALKALINE PHOSPHATASE 69 IU/L (46-116); ANION GAP 11 (8-16); ASPARTATE AMINO TRANSFERASE 10 U/L (10-37); BILIRUBIN,TOTAL 0.9 MG/DL (0.1-1.0); BLOOD UREA NITROGEN 11 MG/DL (7-18); BUN/CREATININE RATIO 10.8 (6.6-38.0); CALCIUM 9.6 MG/DL (8.5-10.1); CHLORIDE 103 MMOL/L (99-107); CREATININE 1.02 MG/DL (0.40-0.90); GLUCOSE 116 MG/DL (70-104); SODIUM 140 MMOL/L (135-145); TOTAL PROTEIN 7.9 G/DL (6.4-8.2); eGFR 53 ML/MIN
[2019-07-04 10:41] LABS: POTASSIUM 2.8 MMOL/L (3.5-5.1)
[2019-07-04] MEDS ORDERED: potassium Cl 20 mEq SR tablet PO STA (10:42)
[2019-07-04] MEDS ORDERED: potassium Cl 10 mEq/100mL bag IV ONE (10:45)
[2019-07-04] MEDS ORDERED: HYDR-3965 PO (10:56)
[2019-07-04] MEDS ORDERED: CYCL-1 PO (10:56)
[2019-07-04 12:18] VITALS: BP 147/59
== END 2019-07-04 12:32 | disposition home or self-care (01) ==
LOC: ER 08:03
DX: M54.2 Cervicalgia (principal); E87.6 Hypokalemia; M62.838 Other muscle spasm; G43.909 Migraine, unspecified, not intractable, without status migrainosus; I10 Essential (primary) hypertension; G89.29 Other chronic pain; Z98.890 Other specified postprocedural states; Z88.5 Allergy status to narcotic agent; Z88.1 Allergy status to other antibiotic agents; Z88.6 Allergy status to analgesic agent; Z79.899 Other long term (current) drug therapy
CPT/HCPCS: 36415; 80053; 85025; 96365; 96375; 99284; J1885; J2405; J3010; J3480; J7030

== ENCOUNTER 2020-04-02 19:53 | Emergency (ER) | payer MEDICARE, MEDICAID ==
[~2020-04-02] VITALS: Ht 154.9 cm; Wt 53.2 kg
[~2020-04-02 19:53] MED LIST changes: -ACET-1015 PO; -ACET500C5 PO; -ACYC-202 PO; +BAC10T PO; -BENZ-16 PO; -BENZ-49 PO; -CEPH500C5 PO; +CINA30TA2 PO; -GUAI-652 PO; +MONT10TA26 PO; +PANT20TA18 PO; -PANT20TA3 PO; -POTA8CAP20 PO; -SYN0.088T PO
[2020-04-02 19:57] VITALS: BP 144/57
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
[2020-04-02] MEDS ORDERED: LIDOcaine 1% W/epiNEPHrine 1:200,000 10ml vial IJ ONE (21:10)
[2020-04-02] MEDS ORDERED: TETanus/Pertussis (Acell)/Diphther VAC/PF (Tdap-Adult) 0.5ml syringe IMVAC ONE (21:10)
[2020-04-02] MEDS ORDERED: LIDOcaine 1% w/EPI 1:100,000 30ml vial (MDV) IJ ONE (21:30)
== END 2020-04-02 22:31 | disposition home or self-care (01) ==
LOC: ER 19:53
DX: S61.412A Laceration without foreign body of left hand, initial encounter (principal); G43.909 Migraine, unspecified, not intractable, without status migrainosus; I10 Essential (primary) hypertension; G89.29 Other chronic pain; Z98.890 Other specified postprocedural states; Z88.5 Allergy status to narcotic agent; Z88.8 Allergy status to other drugs, medicaments and biological substances; Z79.899 Other long term (current) drug therapy; W26.0XXA Contact with knife, initial encounter; Y93.89 Activity, other specified; Y92.89 Other specified places as the place of occurrence of the external cause; Y99.8 Other external cause status
CPT/HCPCS: 12001; 90471; 90715; 99283

== ENCOUNTER 2020-11-23 09:33 | Observation (INO) | payer MEDICARE, MEDICAID ==
[~2020-11-23] VITALS: Ht 154.9 cm; Wt 52.3 kg
[~2020-11-23 09:33] MED LIST changes: -MONT10TA26 PO; +MONT10TA32 PO
[2020-11-23] MEDS ORDERED: morphine 4 MG/ML inj SYRINge IM ONE (10:05)
[2020-11-23] MEDS ORDERED: capsaicin 0.025% 60gm cream TP STA (10:51)
[2020-11-23] MEDS ORDERED: orphenadrine citrate 60mg/2ml inj. IM ONE (10:55)
[2020-11-23] MEDS ORDERED: methyl salicylate/menthol cream 57gm TP STA (10:57)
--- NOTE | 2020-11-23 11:10 | NUR ---
Patient resting in bed quietly, asking for water, denture cup, and belongings. States pain is not improved with morphine. Additional orders placed by Myron RILEY.
--- NOTE | 2020-11-23 12:08 | NUR ---
Ambulated with minimal assistance. Complaining of pain but able to ambulate with walker. Myron RILEY updated.
[2020-11-23] MEDS ORDERED: oxyCODONE/APAP 5-325mg tablet PO ONE (13:00)
[2020-11-23] MEDS ORDERED: LEVO50TA8 PO (13:43)
[2020-11-23] MEDS ORDERED: GUAI600T45 PO (13:46)
[2020-11-23] MEDS ORDERED: POTA8CAP20 PO (13:46)
[2020-11-23] MEDS ORDERED: CETI10TA14 PO (13:46)
--- NOTE | 2020-11-23 13:51 | NUR ---
Refused percocet because it makes her "too high." Patient requesting Perry instead of percocet. Myron RILEY aware.
[2020-11-23] MEDS ORDERED: HYDROcodone/acetaminophen 10/325mg tab PO ONE (13:55)
[2020-11-23 13:59] LABS: BASOPHILS % (AUTO) 0.4 % (0-1); EOSINOPHILS % (AUTO) 0.3 % (0-6); HEMATOCRIT 38.5 % (35.0-45.0); LYMPHOCYTES # (AUTO) 1.4 X10'3 (1.1-4.8); LYMPHOCYTES % (AUTO) 11.7 % (21-51); MEAN CORPUSCULAR HEMOGLOBIN 27.6 PG (27.0-31.0); MEAN CORPUSCULAR HGB CONC 33.8 g/dL (33.0-36.5); MEAN CORPUSCULAR VOLUME 81.5 FL (78-98); MEAN PLATELET VOLUME 7.4 FL (7.4-10.4); MONOCYTES # (AUTO) 0.9 X10'3 (0-0.9); MONOCYTES % (AUTO) 7.7 % (2-12); NEUTROPHILS # (AUTO) 9.4 X10'3 (1.8-7.7); NEUTROPHILS % (AUTO) 79.9 % (42-75); PLATELET COUNT 191 X10'3 (140-440); RED BLOOD COUNT 4.72 X10'6 (4.20-5.60); RED CELL DISTRIBUTION WIDTH 15.3 % (11.5-14.5); WHITE BLOOD COUNT 11.8 X10'3 (4.5-11.0)
[2020-11-23 14:10] LABS: ALANINE AMINOTRANSFERASE 34 U/L (12-78); ALBUMIN 3.8 G/DL (3.4-5.0); ALBUMIN/GLOBULIN RATIO 1.1 (1.1-1.5); ALKALINE PHOSPHATASE 106 IU/L (46-116); ANION GAP 10 (8-16); ASPARTATE AMINO TRANSFERASE 25 U/L (10-37); BILIRUBIN,TOTAL 0.7 MG/DL (0.1-1.0); BLOOD UREA NITROGEN 19 MG/DL (7-18); BUN/CREATININE RATIO 17.3 (6.6-38.0); CHLORIDE 104 MMOL/L (99-107); GLUCOSE 136 MG/DL (70-104); POTASSIUM 3.7 MMOL/L (3.5-5.1); SODIUM 140 MMOL/L (135-145); TOTAL CARBON DIOXIDE 25.7 MMOL/L (24-32); TOTAL PROTEIN 7.4 G/DL (6.4-8.2); eGFR 48 ML/MIN
[2020-11-23 14:30] LABS: CLARITY,URINE CLOUDY (Clear); COLOR,URINE YELLOW (Yellow); GLUCOSE, URINE NEGATIVE (Neg); KETONES,URINE NEGATIVE (Neg); LEUKOCYTE ESTERASE ,URINE SMALL (Neg); NITRITES, URINE NEGATIVE (Neg); OCCULT BLOOD,URINE MODERATE (Neg); PH,URINE 5.5 (4.8-8.0); PROTEIN,URINE NEGATIVE (Neg); UROBILINOGEN,URINE 0.2 E.U/dL (0.2-1.0)
[2020-11-23 14:35] LABS: UA COLLECTION TYPE STRAIGHT CATH
[2020-11-23 14:36] LABS: BACTERIA,URINE 2+ /HPF (Neg); SQUAMOUS EPITHELIAL CELL,UR MANY /LPF (FEW); TRANSITIONAL EPI CELLS,URINE MANY /HPF
[2020-11-23 14:37] LABS: RBC,URINE 0-2 /HPF (0-2); WBC,URINE 0-4 /HPF (0-4)
[2020-11-23] MEDS ORDERED: magnesium hydroxide 30ml (MOM) UD suspension PO PRN (14:40)
[2020-11-23] MEDS ORDERED: HYDROcodone/acetaminophen 5mg/325mg tablet PO PRN (14:40)
[2020-11-23] MEDS ORDERED: morphine 2 MG/ML inj. syringe IV PRN ×2 (14:40)
[2020-11-23] MEDS ORDERED: ondansetron/PF 4mg/2ml inj IV PRN (14:40)
[2020-11-23] MEDS ORDERED: acetaminophen 325mg tablet PO PRN ×2 (14:40)
[2020-11-23] MEDS ORDERED: mag hydrox/Alum hydrox/simeth 30ml oral suspension PO PRN (14:40)
--- NOTE | 2020-11-23 17:23 | NUR ---
Patient in room ED 2. I have received report from MARCE DECKER and had the opportunity to ask questions and assume patient care.
--- NOTE | 2020-11-23 17:45 | NUR ---
PT TRANSFERRED TO SURGICAL FLOOR, ALERT AND ORIENTATED
[2020-11-23 18:00] VITALS: BP 133/68
--- NOTE | 2020-11-23 18:26 | NUR ---
Problems reprioritized. Patient report given, questions answered & plan of care reviewed with PRUDENCE RN.
--- NOTE | 2020-11-23 18:30 | NUR ---
Patient in room [facility]. I have received report from SIRIA DECKER and had the opportunity to ask questions and assume patient care.
[2020-11-23] MEDS: docusate sod 100mg capsule PO SCH (20:11)
[2020-11-23] MEDS: guaiFENesin ER 600mg tablet PO SCH (20:12)
[2020-11-23] MEDS: cyclobenzaprine 10mg tablet PO PRN (20:12)
[2020-11-23] MEDS: atorvastatin 20mg tablet PO SCH (20:12)
[2020-11-24] VITALS: BP 131/57
[2020-11-24] MEDS ORDERED: gabapentin 400mg capsule PO SCH
[2020-11-24] MEDS: gabapentin 100mg capsule PO SCH ×3 (00:43→15:33)
--- NOTE | 2020-11-24 06:15 | NUR ---
Problems reprioritized. Patient report given, questions answered & plan of care reviewed with LOTTIE DECKER.
[2020-11-24 07:00] VITALS: BP 113/59
--- NOTE | 2020-11-24 07:08 | NUR ---
Patient in room [facility]. I have received report from Marcela DECKER and had the opportunity to ask questions and assume patient care.
[2020-11-24] MEDS: cinacalcet 30mg tablet PO SCH (08:19)
[2020-11-24] MEDS: citalopram 20mg tablet PO SCH (08:20)
[2020-11-24] MEDS: pantoprazole 40mg Tablet.DR PO SCH (08:20)
[2020-11-24] MEDS: cetirizine 10mg tablet PO SCH (08:21)
[2020-11-24] MEDS: levoTHYROXINE 25mcg tablet PO SCH (08:21)
[2020-11-24] MEDS: docusate sod 100mg capsule PO SCH ×2 (08:21→20:08)
[2020-11-24] MEDS: potassium chloride 8mEq ER tablet PO SCH (08:21)
[2020-11-24] MEDS: guaiFENesin ER 600mg tablet PO SCH ×2 (08:22→20:09)
[2020-11-24] MEDS: HYDROcodone/acetaminophen 10/325mg tab PO PRN ×2 (08:22→14:03)
[2020-11-24 11:00] VITALS: BP 110/42
[2020-11-24] MEDS: cyclobenzaprine 10mg tablet PO PRN ×2 (11:13→20:09)
[2020-11-24] MEDS: CefTRIAXone/D5W-Rocephin 1gm 50 ML IV SCH (15:38)
--- NOTE | 2020-11-24 17:13 | NUR ---
Dr Godoy would like to see if patients Pacemaker is compatible with MRI. I called [employer] ( see information in patients chart) and spoke to Karlo Ref # [id number] Per Karlo patients Pacemaker states it is MR conditional. I spoke to Minor our respiratory technician and he states the tech from [employer] would have to be present to place the pacemaker into MRI mode and an RN would have to be present at MRI during scan. paged Dr Godoy PAGER ID: [phone] MESSAGE: [facility] [phone] Re: [facility] [id number] please call re: MRI
--- NOTE | 2020-11-24 17:45 | NUR ---
PAGER ID: [phone] MESSAGE: [facility] [phone] Re: [facility] [id number] please call re: MRI Addendum: 11/24/20 at 1750 by Mignon Barber RN Dr Walt walker will let the oncoming hospitalist take care of this tomorrow
[2020-11-24 18:00] VITALS: BP 138/45
--- NOTE | 2020-11-24 18:18 | NUR ---
Problems reprioritized. Patient report given, questions answered & plan of care reviewed with Prudence RN.
[2020-11-24] MEDS ORDERED: ciprofloxacin 250mg tablet PO SCH (20:00)
[2020-11-24] MEDS: atorvastatin 20mg tablet PO SCH (20:08)
[2020-11-25] VITALS: BP 134/50
[2020-11-25] MEDS: HYDROcodone/acetaminophen 10/325mg tab PO PRN (00:38)
[2020-11-25] MEDS: gabapentin 100mg capsule PO SCH ×2 (00:38→09:57)
--- NOTE | 2020-11-25 06:44 | NUR ---
Problems reprioritized. Patient report given, questions answered & plan of care reviewed with CHRISTOPHER DECKER.
[2020-11-25 07:00] VITALS: BP 129/51
[2020-11-25] MEDS: CefTRIAXone/D5W-Rocephin 1gm 50 ML IV SCH (09:55)
[2020-11-25] MEDS: cinacalcet 30mg tablet PO SCH (09:56)
[2020-11-25] MEDS: pantoprazole 40mg Tablet.DR PO SCH (09:56)
[2020-11-25] MEDS: docusate sod 100mg capsule PO SCH (09:57)
[2020-11-25] MEDS: cetirizine 10mg tablet PO SCH (09:57)
[2020-11-25] MEDS: potassium chloride 8mEq ER tablet PO SCH (09:58)
[2020-11-25] MEDS: guaiFENesin ER 600mg tablet PO SCH (09:58)
[2020-11-25] MEDS: citalopram 20mg tablet PO SCH (09:58)
[2020-11-25] MEDS: levoTHYROXINE 25mcg tablet PO SCH (09:59)
[2020-11-25] MEDS ORDERED: CEFD300C3 PO (12:38)
--- NOTE | 2020-11-25 15:08 | NUR ---
Patient was educated on worsening symptoms, follow up care, and medications. Patient was instructed to call PCP for an appointment. Patient ambulated prior to discharge. IV removed and canula intact.
[2020-11-25] MEDS ORDERED: lactobacillus rhamnosus 10,000 MMU CELLS/CAPSULE PO SCH (20:00)
--- NOTE | 2020-11-28 10:58 | NUR ---
CASE MANAGEMENT DISCHARGE FOLLOW UP: Spoke with pt via telephone. Reports that she is not doing much better, still has pain/muscle spasm in leg, states that she is trying to walk as much as she can. Verbalizes understanding of s/sx requiring further evaluation/emergent assistance. Pt asks if antibiotic ordered was for tx of a UTI, stated that yes medication is for UTI (also cellulitis of groin which pt is unable to verify/deny as she can't see that area, "would need a mirror"), pt then states that she knew she had a UTI for 1 month and kept telling her PMD who ordered, per pt, 4 UAs which all came back contaminated per pt. Expresses frustration that her PMD could not get her tx for UTI sooner. Pt states that she will be f/u with her PMD on 12/06/20 in regards to condition of leg. In the interim, pt states that she is trying to ambulate as much as she can. Pt does express frustration that "they never told [her] what was wrong with [her]." States no further questions/concerns at this time.
== END 2020-11-25 14:16 | disposition home health service (06) ==
LOC: ER 09:34 → ED HOLD 14:39 → SUR 3N 17:33
PROVIDERS: ADMIT Internal Medicine; ATTEND Internal Medicine
DX: M79.605 Pain in left leg (principal); N39.0 Urinary tract infection, site not specified; G89.29 Other chronic pain; E03.9 Hypothyroidism, unspecified; E78.5 Hyperlipidemia, unspecified; K21.9 Gastro-esophageal reflux disease without esophagitis; I10 Essential (primary) hypertension; G43.909 Migraine, unspecified, not intractable, without status migrainosus; F32.9 Major depressive disorder, single episode, unspecified; I49.5 Sick sinus syndrome; Z95.0 Presence of cardiac pacemaker; Z90.710 Acquired absence of both cervix and uterus; Z98.51 Tubal ligation status; Z79.899 Other long term (current) drug therapy; Z88.5 Allergy status to narcotic agent; Z88.3 Allergy status to other anti-infective agents; Z88.1 Allergy status to other antibiotic agents; Z88.6 Allergy status to analgesic agent
CPT/HCPCS: 36415; 72192; 73564; 80053; 81001; 85025; 85651; 87077; 87081; 87088; 87186; 96365; 96366; 96372; 97110; 97116; 97161; 97530; 99284; G0378; J0604; J0696; J2270; J2360

== ENCOUNTER 2021-12-24 11:08 | Emergency (ER) | payer MEDICARE, MEDICAID ==
[~2021-12-24] VITALS: Ht 154.9 cm; Wt 54.5 kg
[~2021-12-24 11:08] MED LIST changes: -BAC10T PO; +CETI10TA14 PO; +GUAI600T45 PO; +LEVO50TA8 PO; -MONT10TA32 PO; +POTA8CAP20 PO
[2021-12-24 12:18] LABS: BASOPHILS # (AUTO) 0.1 X10'3 (0-0.2); BASOPHILS % (AUTO) 0.9 % (0-1); EOSINOPHILS # (AUTO) 0.4 X10'3 (0-0.9); EOSINOPHILS % (AUTO) 4.3 % (0-6); HEMATOCRIT 40.8 % (35.0-45.0); HEMOGLOBIN 13.8 g/dl (12.0-16.0); LYMPHOCYTES # (AUTO) 2.8 X10'3 (1.1-4.8); LYMPHOCYTES % (AUTO) 34.1 % (21-51); MEAN CORPUSCULAR HEMOGLOBIN 26.4 PG (27.0-31.0); MEAN CORPUSCULAR HGB CONC 33.8 g/dL (33.0-36.5); MEAN CORPUSCULAR VOLUME 78.1 FL (78-98); MEAN PLATELET VOLUME 7.4 FL (7.4-10.4); MONOCYTES # (AUTO) 0.6 X10'3 (0-0.9); MONOCYTES % (AUTO) 7.5 % (2-12); NEUTROPHILS # (AUTO) 4.4 X10'3 (1.8-7.7); NEUTROPHILS % (AUTO) 53.2 % (42-75); PLATELET COUNT 205 X10'3 (140-440); RED BLOOD COUNT 5.22 X10'6 (4.20-5.60); RED CELL DISTRIBUTION WIDTH 15.2 % (11.5-14.5); WHITE BLOOD COUNT 8.4 X10'3 (4.5-11.0)
[2021-12-24 12:35] LABS: ALANINE AMINOTRANSFERASE 28 U/L (12-78); ALBUMIN 4.1 G/DL (3.4-5.0); ALKALINE PHOSPHATASE 115 IU/L (46-116); ANION GAP 13 (8-16); ASPARTATE AMINO TRANSFERASE 23 U/L (10-37); BILIRUBIN,TOTAL 0.4 MG/DL (0.1-1.0); BLOOD UREA NITROGEN 25 MG/DL (7-18); BUN/CREATININE RATIO 23.1 (6.6-38.0); CALCIUM 9.3 MG/DL (8.5-10.1); CHLORIDE 106 MMOL/L (99-107); CREATININE 1.08 MG/DL (0.40-0.90); GLUCOSE 118 MG/DL (70-104); POTASSIUM 4.1 MMOL/L (3.5-5.1); SODIUM 143 MMOL/L (135-145); TOTAL CARBON DIOXIDE 24.3 MMOL/L (24-32); TOTAL PROTEIN 8.1 G/DL (6.4-8.2); eGFR 49 ML/MIN
[2021-12-24 13:08] LABS: CLARITY,URINE CLEAR (Clear); GLUCOSE, URINE NEGATIVE (Neg); KETONES,URINE NEGATIVE (Neg); LEUKOCYTE ESTERASE ,URINE NEGATIVE (Neg); NITRITES, URINE NEGATIVE (Neg); OCCULT BLOOD,URINE SMALL (Neg); PH,URINE 5.5 (4.8-8.0); PROTEIN,URINE NEGATIVE (Neg); UROBILINOGEN,URINE 0.2 E.U/dL (0.2-1.0)
[2021-12-24 13:25] LABS: COLOR,URINE STRAW (Yellow); UA COLLECTION TYPE CLN CATCH MIDSTREAM
[2021-12-24 13:27] LABS: BACTERIA,URINE FEW /HPF (Neg); RBC,URINE 0-2 /HPF (0-2); SQUAMOUS EPITHELIAL CELL,UR MODERATE /LPF (FEW)
[2021-12-24 13:28] LABS: WBC CLUMPS,URINE MODERATE /HPF (NEGATIVE)
[2021-12-24] MEDS ORDERED: cephalexin 250mg capsule PO ONE (19:15)
[2021-12-24] MEDS ORDERED: CEPH-585 PO (19:17)
[2021-12-24 20:04] VITALS: BP 181/76
== END 2021-12-24 20:05 | disposition home or self-care (01) ==
LOC: ER 11:08
DX: R07.89 Other chest pain (principal); Z20.822 Contact with and (suspected) exposure to COVID-19; N39.0 Urinary tract infection, site not specified; R05.9 Cough, unspecified; R30.0 Dysuria; G43.909 Migraine, unspecified, not intractable, without status migrainosus; I10 Essential (primary) hypertension; G89.29 Other chronic pain; Z98.890 Other specified postprocedural states; Z88.5 Allergy status to narcotic agent; Z88.1 Allergy status to other antibiotic agents; Z88.6 Allergy status to analgesic agent; Z88.8 Allergy status to other drugs, medicaments and biological substances; Z79.2 Long term (current) use of antibiotics; Z79.899 Other long term (current) drug therapy
CPT/HCPCS: 36415; 71045; 80053; 81001; 84484; 85025; 87088; 87502; 87503; 87635; 93005; 99285; C9803

== ENCOUNTER 2022-04-18 09:44 | Day surgery (SDC) | payer MEDICARE, MEDICAID ==
[~2022-04-18] VITALS: Ht 154.9 cm; Wt 51.8 kg
[~2022-04-18 09:44] MED LIST changes: +CEPH-585 PO
[2022-04-18] MEDS ORDERED: fentaNYL/PF 50MCG/1 ML 2ML syringe ONE (09:54)
[2022-04-18] MEDS ORDERED: MIDAZolam 1 MG/ML 5ML VIAL ONE (09:54)
[2022-04-18] MEDS ORDERED: LIDOcaine Viscous 15ml cup ONE (09:54)
[2022-04-18 10:00] VITALS: BP 157/65
[2022-04-18] MEDS ORDERED: FLUT16SP11 BOTHNARES (10:37)
[2022-04-18] MEDS ORDERED: BACL10TA2 PO (10:38)
[2022-04-18] MEDS ORDERED: GABA300C PO (10:39)
[2022-04-18] MEDS ORDERED: HYDR-3965 PO (10:41)
[2022-04-18 13:27] VITALS: BP 131/57
[2022-04-18 13:37] VITALS: BP 115/63
[2022-04-18 13:47] VITALS: BP 132/70
[2022-04-18 13:57] VITALS: BP 142/75
== END 2022-04-18 14:05 | disposition home or self-care (01) ==
LOC: GI LAB 09:44
PROVIDERS: ATTEND Internal Medicine Gastroenterology
DX: K29.50 Unspecified chronic gastritis without bleeding (principal); K22.2 Esophageal obstruction; Z79.899 Other long term (current) drug therapy
CPT/HCPCS: 43239; 43248; G0500; J2250; J3010; J7030; Z7512; 43450; 88305; 99152; A4620

== ENCOUNTER 2024-03-09 08:27 | Outpatient (CLI) | payer MEDICARE, MEDICAID ==
[~2024-03-09 08:27] MED LIST changes: +BACL10TA2 PO; -CEPH-585 PO; +FLUT16SP11 BOTHNARES; +GABA300C PO; +HYDR-3965 PO
== END 2024-03-09 23:59 | disposition home or self-care (01) ==
LOC: RAD 08:27
PROVIDERS: ATTEND Student in an Organized Health Care Education/Training Program
DX: I73.9 Peripheral vascular disease, unspecified (principal); R10.9 Unspecified abdominal pain
CPT/HCPCS: 76700; 93922